=== PATIENT | female | born 1975 | race Caucasian/White ===

== ENCOUNTER 2016-09-12 17:19 | Emergency (ER) | payer BC ==
[~2016-09-12] VITALS: Ht 160 cm; Wt 120.8 kg
[~2016-09-12 17:19] MED LIST: BUDE180I INH; MONT1TAB3 PO; PRLSR20 PO; ZNTT/150 PO
[2016-09-12 17:22] VITALS: Ht 160 cm; Wt 120.8 kg
[2016-09-12 20:20] VITALS: O2SAT 98
[2016-09-12 20:56] LABS: HEMATOCRIT 42.5 % (37-47); MEAN CELL VOLUME 87.6 fL (80-100); MEAN CORPUSCULAR HEMOGLOBIN 28.7 pg (25-34); MEAN CORPUSCULAR HGB CONC 32.7 g/dl (32-36); MEAN PLATELET VOLUME 9.1 fL (7.4-10.4); PLATELET COUNT 306 K/uL (130-400); RED BLOOD COUNT 4.85 M/uL (4.2-5.4); WHITE BLOOD COUNT 14.24 K/uL (4.8-10.8)
[2016-09-12] MEDS ORDERED: ALUMINUM/MAGNESIUM SUSP 30 ML UDC PO STA (21:05)
[2016-09-12] MEDS ORDERED: LIDOCAINE HCL 2% VISC SOLN 20 ML UDC PO STA (21:05)
[2016-09-12 21:09] LABS: ALT/SGPT 23 U/L (12-78); BLOOD UREA NITROGEN 16 mg/dl (7-18); BUN/CREATININE RATIO 18.5 (10-20); CARBON DIOXIDE 25 mmol/L (21-32); CHLORIDE 106 mmol/L (98-107); CREATININE 0.84 mg/dl (0.60-1.20); GLUCOSE 79 mg/dl (70-99); SODIUM 141 mmol/L (136-145)
[2016-09-12] MEDS ORDERED: FLUT0.15 NAE (21:12)
--- NOTE | 2016-09-12 21:12 | EMERGENCY ROOM VISIT NOTE ---
History Report prepared by Dennys: Yulissa Boone Under the Supervision of: Dr. Karen Cooper M.D. First contact with patient: 20:47 Chief Complaint: CHEST PAIN Stated Complaint: CHEST PAIN History of Present Illness The patient is a 41 year old female who presents to the Emergency Room with complaints of persistent, but resolving central chest pain that began several hours ago. She currently rates her discomfort as a 3/10 in severity. The patient states that today she was at [employer] getting pillows and states that while loading her car, she developed central chest pain. She reports that she waited awhile to see if the pain subsided, but states that it persisted. The patient states that she noticed the pain radiate into her back, and additionally notes shortness of breath. She states that she thought her pain was related to anxiety, but it continued to persist and began to radiate into her neck. The patient states that she was evaluated at [facility] and states that after she had an EKG and was given 324 of aspirin, she was sent to the emergency department for further treatment. She states that her pain has slightly resolved. The patient states that she is a daily smoker at 1/2 pack per day. She denies any control use or hormonal usage. The patient denies any family history of heart disease. She reports that she is currently on prednisone due to a recent back injury. Source of History: patient Onset: several hours ago Position: chest (central) Symptom Intensity: 3/10 Timing: other (persistent, resolving) Associated Symptoms: + neck pain, + SOB, + back pain Review of Systems See HPI for pertinent positives & negatives. A total of 10 systems reviewed and were otherwise negative. Past Medical & Surgical Medical Problems: (1) Migraine (2) OBESITY, NOS (3) TOBACCO USE DISORDER (4) [place] Teeth Removal Family History FH: cancer Social History Smoking Status: Current Every Day Smoker Alcohol Use: occasionally Marital Status: Housing Status: lives with family Occupation Status: employed Current/Historical Medications Scheduled Pantoprazole (Protonix), 40 MG PO DIRECTED Prednisone (Prednisone), Unknown Dose PO UD Scheduled PRN Fexofenadine Hcl (Ashley), 1 TAB PO DAILY PRN for ALLERGIES Fluticasone Propionate (Nasal) (Flonase Allergy Relief), 1 SPRAY ANNIE DAILY PRN for ALLERGIES Allergies Coded Allergies: POLLEN (Verified Allergy, Unknown, UNKNOWN, 6/15/17) Ragweed (Verified Allergy, Unknown, UNKNOWN, 09/12/16) Physical Exam Vital Signs Date Time Temp Pulse Resp B/P (MAP) Pulse Ox O2 Delivery O2 Flow Rate FiO2 09/12/16 22:48 36.6 64 18 134/83 92 09/12/16 22:36 64 18 92 09/12/16 22:31 134/83 09/12/16 22:06 67 28 94 09/12/16 22:01 114/84 09/12/16 21:36 67 23 96 09/12/16 21:31 127/79 09/12/16 21:06 67 25 94 09/12/16 21:01 131/98 96 Room Air 09/12/16 20:56 Room Air 09/12/16 20:49 64 14 94 Room Air 09/12/16 20:36 62 09/12/16 20:31 130/80 09/12/16 20:20 98 Room Air 09/12/16 17:22 36.6 78 16 157/90 95 Room Air Physical Exam Vital signs reviewed. General: Well-appearing obese, female, in no significant distress. HEENT: No scleral icterus, PERRLA, neck supple. Atraumatic. Cardiovascular: Regular rate and rhythm, no extra sounds. Pulmonary: Clear to auscultation bilaterally, normal work of breathing. Abdomen: Soft, nontender, nondistended, positive bowel sounds. Musculoskeletal: Atraumatic, no peripheral edema. Neurologic: Patient awake alert and oriented x 3 Skin: Warm, dry, no rash Medical Decision & Procedures ER Provider Diagnostic Interpretation: X-ray results as stated below per interpretation by me and the radiologist: CHEST ONE VIEW PORTABLE CLINICAL HISTORY: Chest pain. COMPARISON STUDY: Chest CT December 14, 2015. FINDINGS: There is no pneumothorax or pleural effusion. There is no evidence of pulmonary edema. Cardiomediastinal silhouette is normal. No consolidation is identified. IMPRESSION: No acute cardiopulmonary findings. Electronically signed by: Mc Allen M.D. 09/12/2016 9:29 PM Dictated Date/Time: 09/12/2016 9:28 PM Laboratory Results 09/12/16 20:30 Red Blood Count 4.85, Mean Corpuscular Volume 87.6, Mean Corpuscular Hemoglobin 28.7, Mean Corpuscular Hemoglobin Concent 32.7, Mean Platelet Volume 9.1, Neutrophils (%) (Auto) 54.9, Lymphocytes (%) (Auto) 37.3, Monocytes (%) (Auto) 4.6, Eosinophils (%) (Auto) 2.7, Basophils (%) (Auto) 0.1, Neutrophils # (Auto) 7.82, Lymphocytes # (Auto) 5.31, Monocytes # (Auto) 0.65, Eosinophils # (Auto) 0.38, Basophils # (Auto) 0.02 09/12/16 20:30 Test 09/12/16 20:30 09/12/16 20:54 White Blood Count 14.24 K/uL (4.8-10.8) Red Blood Count 4.85 M/uL (4.2-5.4) Hemoglobin 13.9 g/dL (12.0-16.0) Hematocrit 42.5 % (37-47) Mean Corpuscular Volume 87.6 fL (80-100) Mean Corpuscular Hemoglobin 28.7 pg (25-34) Mean Corpuscular Hemoglobin Concent 32.7 g/dl (32-36) Platelet Count 306 K/uL (130-400) Mean Platelet Volume 9.1 fL (7.4-10.4) Neutrophils (%) (Auto) 54.9 % Lymphocytes (%) (Auto) 37.3 % Monocytes (%) (Auto) 4.6 % Eosinophils (%) (Auto) 2.7 % Basophils (%) (Auto) 0.1 % Neutrophils # (Auto) 7.82 K/uL (1.4-6.5) Lymphocytes # (Auto) 5.31 K/uL (1.2-3.4) Monocytes # (Auto) 0.65 K/uL (0.11-0.59) Eosinophils # (Auto) 0.38 K/uL (0-0.5) Basophils # (Auto) 0.02 K/uL (0-0.2) RDW Standard Deviation 45.7 fL (36.4-46.3) RDW Coefficient of Variation 14.2 % (11.5-14.5) Immature Granulocyte % (Auto) 0.4 % Immature Granulocyte # (Auto) 0.06 K/uL (0.00-0.02) Anion Gap 10.0 mmol/L (3-11) Est Creatinine Clear Calc Drug Dose 108.7 ml/min Estimated GFR () 98.7 Estimated GFR (Non- 85.1 BUN/Creatinine Ratio 18.5 (10-20) Calcium Level 8.4 mg/dl (8.5-10.1) Total Bilirubin 0.2 mg/dl (0.2-1) Direct Bilirubin < 0.1 mg/dl (0-0.2) Aspartate Amino Transf (AST/SGOT) 10 U/L (15-37) Alanine Aminotransferase (ALT/SGPT) 23 U/L (12-78) Alkaline Phosphatase 62 U/L (45-117) Total Creatine Kinase 35 U/L (26-192) Creatine Kinase MB < 0.5 ng/ml (0.5-3.6) Creatine Kinase MB Ratio (0-3.0) Total Protein 7.2 gm/dl (6.4-8.2) Albumin 3.4 gm/dl (3.4-5.0) Bedside Troponin I < 0.030 ng/ml (0-0.045) Laboratory results per my review. Medications Administered Medications (Trade) Dose Ordered Sig/Patricia Route Start Time Stop Time Status Last Admin Dose Admin Lidocaine HCl (Viscous Lidocaine 2% Soln) 10 ml NOW STAT PO 09/12/16 21:05 09/12/16 21:06 DC 09/12/16 21:13 10 ML Al Hydroxide/Mg Hydroxide (Maalox Susp) 30 ml NOW STAT PO 09/12/16 21:05 09/12/16 21:06 DC 09/12/16 21:13 30 ML Pantoprazole Sodium (Protonix Tab) 40 mg NOW STAT PO 09/12/16 22:06 09/12/16 22:07 DC 09/12/16 22:18 40 MG ECG Rate (beats per minute): 66 Rhythm: normal sinus Findings: T-wave inversion (V1 and V2), no acute ischemic change, no ectopy ED Course 2100: Past medical records reviewed. The patient was evaluated in room A10. A complete history and physical examination was performed. 2104: Ordered Maalox Susp 30 ml PO, Lidocaine HCl 10 ml PO, Protonix Tab 40 mg PO. 2238: I reevaluated the patient and she is resting comfortably. I discussed the exam findings with her and I discussed the treatment plan. She verbalized complete understanding and agreement. She is ready to go home. Medical Decision DDx: Acute coronary syndrome, pulmonary embolus, aortic dissection, musculoskeletal pain, pneumonia, pleural effusion, pneumothorax Medication Reconciliation: I attest that I have personally reviewed the patient' s current medication list. Blood Pressure Screening: Patient was found to have normal blood pressure on screening and does not require follow-up. This patient was evaluated and appeared to be in no significant distress. IV access was obtained and laboratory work was drawn. The patient was placed on cardiac rn and found to be in a normal sinus rhythm. EKG reveals no evidence of acute ischemia. The patient was given a GI cocktail with some improvement. Patient had received aspirin prior to arrival. Cardiac enzymes are negative 2. Patient's chest x-ray is clear. The patient was advised of the findings. I suspect that her symptoms are related to her current prednisone therapy. This is also likely the explanation for her leukocytosis. Patient was advised to stop the prednisone. She was placed on Protonix 40 mg twice a day for 2 weeks, then once daily for 2 weeks. She will follow-up with her primary care physician for reevaluation this week and return to the ER for worsening of symptoms or any medical concerns. Impression Primary Impression: Substernal precordial chest pain Additional Impression: Gastritis Scribe Attestation The scribe's documentation has been prepared under my direction and personally reviewed by me in its entirety. I confirm that the note above accurately reflects all work, treatment, procedures, and medical decision making performed by me. Departure Information Dispostion Home / Self-Care Prescriptions Pantoprazole (Protonix) 40 Mg Tab 40 MG PO DIRECTED, #45 TAB 40 mg twice daily for 2 weeks, 40 mg once daily for 2 weeks. Prov: Karen Cooper M.D. 09/12/16 Referrals Chance Mcdaniel D.ORegla (PCP) Forms HOME CARE DOCUMENTATION FORM, IMPORTANT VISIT INFORMATION Patient Instructions My [facility] Additional Instructions Diagnosis: Gastritis Protonix 40 mg twice daily for 2 weeks. Then 1 time a day for 2 weeks. Avoid aspirin, Aleve, ibuprofen. Avoid excessive alcohol. Stop taking prednisone. Follow-up with your physician this week for reevaluation. Return to the ER for worsening of symptoms or any medical concerns. Problem Qualifiers
[2016-09-12 21:14] LABS: ALKALINE PHOSPHATASE 62 U/L (45-117); AST/SGOT 10 U/L (15-37)
[2016-09-12] MEDS ORDERED: FEXO1TAB45 PO (21:14)
[2016-09-12] MEDS ORDERED: PRD/1 PO (21:17)
[2016-09-12 21:24] LABS: BASO % 0.1 %; BASO ABS # 0.02 K/uL (0-0.2); COMPLETE YES; EOS % 2.7 %; IG% 0.4 %; LYMPH % 37.3 %; LYMPH ABS # 5.31 K/uL (1.2-3.4); MONO % 4.6 %; NEUT % 54.9 %
--- NOTE | 2016-09-12 21:30 | DIAGNOSTIC IMAGING REPORT ---
CHEST ONE VIEW PORTABLE CLINICAL HISTORY: Chest pain. COMPARISON STUDY: Chest CT December 14, 2015. FINDINGS: There is no pneumothorax or pleural effusion. There is no evidence of pulmonary edema. Cardiomediastinal silhouette is normal. No consolidation is identified. IMPRESSION: No acute cardiopulmonary findings. Electronically signed by: Mc Allen M.D. 09/12/2016 9:29 PM Dictated Date/Time: 09/12/2016 9:28 PM
[2016-09-12 21:59] LABS: CALCIUM 8.4 mg/dl (8.5-10.1)
[2016-09-12] MEDS ORDERED: PANTOprazole SOD 40 MG TAB PO STA (22:06)
[2016-09-12 22:48] VITALS: BP 134/83; PULSE 64; TEMP 36.6; O2SAT 92
[2016-09-12] MEDS ORDERED: PANT40TA PO (22:49)
== END 2016-09-12 22:48 | disposition home or self-care (01) ==
LOC: C.EDB 17:19 → C.EDA 22:48
DX: R07.2 Precordial pain (principal); K29.70 Gastritis, unspecified, without bleeding; E66.9 Obesity, unspecified; F17.200 Nicotine dependence, unspecified, uncomplicated

== ENCOUNTER → 2016-10-09 | Outpatient (CLI) | payer BC ==
[~2016-10-09] MED LIST changes: -BUDE180I INH; +FEXO1TAB45 PO; +FLUT0.15 NAE; -MONT1TAB3 PO; +PANT40TA PO; +PRD/1 PO; -PRLSR20 PO; -ZNTT/150 PO
--- NOTE | 2016-10-09 15:37 | MAMMOGRAPHY REPORT ---
BILATERAL DIGITAL SCREENING MAMMOGRAM TOMOSYNTHESIS WITH CAD: 10/09/2016 CLINICAL HISTORY: Routine screening. TECHNIQUE: Breast tomosynthesis in addition to standard 2D mammography was performed. Current study was also evaluated with a Computer Aided Detection (CAD) system. COMPARISON: Comparison is made to exams dated: 10/05/2015 mammogram, 08/17/2014 mammogram, 06/02/2013 tim mogram, 07/12/2009 mammogram, 02/27/2010 mammogram, and 06/10/2013 mammogram - [facility] nter. BREAST COMPOSITION: There are scattered areas of fibroglandular density in both breasts. FINDINGS: No suspicious masses, calcifications, or areas of architectural distortion are noted in ei ther breast. There has been no significant interval change compared to prior exams. IMPRESSION: ACR BI-RADS CATEGORY 1: NEGATIVE There is no mammographic evidence of malignancy. A 1 year screening mammogram is recommended. The pa tient will receive written notification of the results. Approximately 10% of breast cancers are not detected with mammography. A negative mammographic report should not delay biopsy if a clinically suggestive mass is present. Kathy Duff M.D. ah/:10/09/2016 08:22:23 Rn Er: Hardeep WARREN(Ju)(M), [facility] letter sent: Normal 1/2 BI-RADS Code: ACR BI-RADS Category 1: Negative
== END | disposition home or self-care (01) ==
LOC: C.MAMM 07:56
PROVIDERS: ATTEND Family Medicine
DX: Z12.31 Encounter for screening mammogram for malignant neoplasm of breast (principal)

== ENCOUNTER → 2017-10-27 | Outpatient (CLI) | payer OTHER ==
[~2017-10-27] MED LIST changes: -PANT40TA PO
--- NOTE | 2017-10-27 15:43 | MAMMOGRAPHY REPORT ---
UNILATERAL RIGHT DIGITAL DIAGNOSTIC MAMMOGRAM TOMOSYNTHESIS AND RIGHT ULTRASOUND: 10/27/2017 CLINICAL HISTORY: 42-year-old woman called back from screening mammography for 2 right breast asymmet david. TECHNIQUE: Spot compression right CC and MLO 2D and tomosynthesis images were obtained. COMPARISON: Comparison is made to exams dated: 10/14/2017 mammogram, 10/09/2016 mammogram, 08/17/2014 m ammogram, 06/10/2013 mammogram, 06/02/2013 mammogram, and 02/27/2010 mammogram - [facility] enter. Ultrasound of the right breast was performed. BREAST COMPOSITION: There are scattered areas of fibroglandular density in right breast. FINDINGS: Spot compression views performed in the lateral right breast demonstrate a persistent trian gular mass with angular and indistinct margins in the upper outer middle one third of the breast at a pproximately 9:00, measuring 13 x 9 x 8 mm. No associated architectural distortion or calcification. Further evaluation with ultrasound was performed. Targeted ultrasound was performed throughout the lateral right breast. In the 8:00 axis, 8 cm from t he nipple, there is a mixed anechoic and isoechoic predominantly cystic-appearing mass that has the a ppearance of a microcyst cluster. This mass measures 14 x 8 x 5 mm and corresponds with asymmetry se en in the lateral right breast. Although this mass is probably benign representing a cyst cluster, a papillary lesion cannot be completely excluded and further characterization with an ultrasound-guide d core needle biopsy is recommended. At the time of this ultrasound evaluation, the medial breast was not scanned and therefore ultrasound of the medial right breast for the second mammographic asymmetry should be performed at time of biop sy in the 8:00 axis. IMPRESSION: ACR BI-RADS CATEGORY 4: SUSPICIOUS, ULTRASOUND ACR BI-RADS CATEGORY 4: SUSPICIOUS 1. Right breast ultrasound-guided core biopsy is recommended for an indeterminate 14 mm mass in the 8:00 axis, which corresponds with 1 of the mammographic asymmetries identified in the lateral breast. 2. At the time of ultrasound biopsy, ultrasound evaluation should also be performed throughout the m edial right breast, to assess for the second more medial asymmetry best seen on CC tomosynthesis slic e 41/75. These results and recommendations were discussed with the patient at the time of the exam. She tenta tively scheduled the right breast biopsy prior to leaving our department. Some breast cancers are not detected with mammography. A negative mammographic report should not tameka y biopsy if a clinically suggestive mass is present. Carmina Nolan M.D. ay/:10/27/2017 12:23:15 Sliver Machine Operator: RT Anne Marie(R)(Reema), [facility] letter sent: Abnormal 4/5 OVERALL STUDY BIRADS: 4 Suspicious abnormality
== END | disposition home or self-care (01) ==
LOC: C.MAMM 11:22
PROVIDERS: ATTEND Family Medicine
DX: N64.89 Other specified disorders of breast (principal); N63.13 Unspecified lump in the right breast, lower outer quadrant

== ENCOUNTER → 2017-11-04 | Outpatient (CLI) | payer OTHER ==
--- NOTE | 2017-11-04 14:12 | Discharge Instructions ---
Discharge Instructions Procedure Procedure Date: Nov 04, 2017. Reason for visit: Right Mass+Us Medial. Discharge Discharge Date: Nov 04, 2017. Discharge Diagnosis: post right breast ultrasound guided core biopsy Instructions Activity Recommendations: Additional Limitations (see below) Return to School/Work: no limitations Recommended Home Diet: No Limitations Provider Instructions: ACTIVITY RECOMMENDATIONS: * No lifting, pushing, pulling or exercising the affected side for three days. RETURN TO SCHOOL/WORK: * You may return to work/school after the procedure, but do not perform any strenuous activities for 24 to 48 hours. MEDICATIONS: * Tylenol (two 325 mg) every four to six hours if needed for mild pain (if not allergic to Tylenol). DIET: * Resume previous diet. SPECIAL CARE INSTRUCTIONS: * Keep biopsy site dry for 24 hours. May shower after 24 hours, but do not soak (bathe) incision. May remove Tegaderm (plastic patch) 24 hours after procedure * Leave the steri-strips on for one week. Allow the steri-strips to fall off by themselves. If not off after one week, you may remove them. You may place a Bandaid crosswise over the strips, if desired. * Apply ice 10 minutes on and 10 minutes off as needed. * Wear a bra at bedtime to sleep more comfortably for 2-3 days. * Your referring physician should have the results after approximately 5 to 7 business days. * Call for unusual bleeding, fever, drainage, etc or if you have any questions call [phone] during normal business hours or after hours call Dr Nolan, . FOLLOW UP VISIT: Follow-up with Referring Physician as scheduled. Allergies Coded Allergies: POLLEN (Verified Allergy, Unknown, UNKNOWN, 09/12/16) Ragweed (Verified Allergy, Unknown, UNKNOWN, 09/12/16) Shreya Ludwig Recommendations: Call your doctor if: * Temperature above 101 degrees * Pain not relieved by pain medicine ordered * There is increased drainage or redness from any incision * You have any unanswered questions or concerns. Your Doctors Instructions noted above were prepared by provider Carmina Nolan. Patient Signature Section: Patient Instructions Signature Page Alisha Neely Patient (or Guardian) Signature/Date: I have read and understand the instructions given to me by my caregivers. Caregiver/RN/Doctor Signature/Date: The above-named patient and/or guardian has received patient instructions on this date. + Original Patient Signature Page (only) stays with chart. Please make copy for patient.
--- NOTE | 2017-11-04 14:45 | MAMMOGRAPHY REPORT ---
UNILATERAL RIGHT DIGITAL DIAGNOSTIC MAMMOGRAM TOMOSYNTHESIS: 11/04/2017 CLINICAL HISTORY: Post ultrasound-guided core biopsy of a mixed solid and cystic mass in the 8:00 rig ht breast, 8 cm from the nipple, measuring 14 mm. Please refer the report from right breast ultrasound-guided core biopsy performed at the same time fo r full detail. IMPRESSION: POST PROCEDURE IMAGING FOR MARKER PLACEMENT Please refer the report from right breast ultrasound-guided core biopsy performed at the same time fo r full detail. Some breast cancers are not detected with mammography. A negative mammographic report should not tameka y biopsy if a clinically suggestive mass is present. Carmina Nolan M.D. ay/:11/04/2017 14:13:47 Mailroom Courier: Marcia Chauhan, [facility] BI-RADS Code: Post Procedure Imaging For Marker Placement
--- NOTE | 2017-11-05 13:37 | MAMMOGRAPHY REPORT ---
THIS REPORT HAS BEEN AMENDED. ULTRASOUND GUIDED BIOPSY RIGHT BREAST: 11/04/2017 CLINICAL HISTORY: Patient presents for ultrasound-guided biopsy of an indeterminate 14 mm angular mix ed solid and cystic mass in the 8:00 right breast, thought to correlate with a focal mammographic asy mmetry in the lateral right breast. Also ultrasound a right medial asymmetry, which was not performed during prior diagnostic workup. PATIENT CONSENT: The procedure, risks and benefits were discussed with the patient and informed conse nt was obtained both verbally and in writing. Specific risks to this procedure include: bleeding, in fection, puncture of adjacent structure, nontarget biopsy, sampling error, pain, metal allergy and me dication reaction. FINDINGS: Prior to ultrasound biopsy of the right breast, real-time high resolution sonographic evalu ation was performed throughout the medial breast. In the 4:00 right breast, 1 cm from the nipple, a benign anechoic simple cyst, oval and parallel in orientation is again seen measuring 7.6 x 3.5 x 11. 5 mm. No other discrete solid or cystic mass is noted in the medial right breast on targeted ultraso und. The patient also reported a single episode of blackish nipple discharge from the right breast f or which periareolar and retroareolar ultrasound was also performed. Several enlarged ducts with int ernal isoechoic/hypoechoic debris are seen in the retroareolar right breast which could explain a sin gle episode of blackish nipple discharge, which could represent ductal debris, given that numerous du cts appear similar. However, pending benign pathology results from the right 8:00 breast biopsy magdalena marroquin recommend a follow-up targeted ultrasound in the retroareolar right breast to ensure stability. PROCEDURE DESCRIPTION: A time out was performed and the right breast was agreed as the site of biopsy . The skin was prepped and draped in the usual sterile fashion. The triangular 14 mm mixed solid and cystic mass in the 8:00 right breast was chosen as the target for biopsy. Subcutaneous and intraparen chymal 1% buffered lidocaine, with and without epinephrine, was administered as local anesthesia. A s kin incision was made. Through the incision, 3 samples were taken with a 14 gauge Achieve biopsy dev ice. A ribbon shaped metallic marker was placed at the biopsy site. Hemostasis was achieved after man ual compression. The patient tolerated the procedure well and there was no immediate complication. T he samples were sent to the pathology department in an appropriately labeled container. Postprocedure right CC and MLO tomosynthesis images were obtained. A new ribbon-shaped biopsy marker clip is identified in the 8:00 right breast, aligning with the mammographic focal asymmetry in quest ion. No significant postbiopsy hematoma identified. The right medial asymmetry seen in the middle o ne third of the breast on the CC view is again noted, low in density with partially circumscribed bor ders measuring 8.5 x 4.1 mm. IMPRESSION: ULTRASOUND GUIDED BIOPSY 1. Status post ultrasound-guided core biopsy of the right 8:00 breast mass, with biopsy marker clip placed at the site. The biopsy marker clip aligns with the mammographic focal asymmetry in question, confirming mammographicsonographic correlation. 2. Pending benign pathology results, a short interval follow-up right diagnostic tomosynthesis mammo gram and possible ultrasound is recommended to ensure stability of a right medial asymmetry seen on t he CC view. 3. At the time of next follow-up, targeted ultrasound should also be performed in the periareolar an d retroareolar right breast to ensure stability of ectatic debris-filled ducts in the setting of one episode of blackish nipple discharge. The patient will receive notification of the biopsy results from her referring physician. Carmina Nolan M.D. ay/:11/04/2017 14:51:22 Wildlife Rehabilitator: Marcia Chauhan, [facility] AMENDMENT: 11/05/2017 Carmina Nolan M.D. Pathology results from the ultrasound-guided core biopsy of an angular mixed solid and cystic mass in the 8:00 right breast yielded fibrocystic change. Negative for DCIS and invasive carcinoma. The pa thology results are benign and concordant with the imaging appearance. A six-month follow-up right d iagnostic mammogram and possible ultrasound still recommended for the more medial asymmetry in the mi ddle one third of the right breast on the cc view, for which no sonographic correlate was identified.
== END | disposition home or self-care (01) ==
LOC: C.MAMM 13:31
PROVIDERS: ATTEND Family Medicine
DX: N63.13 Unspecified lump in the right breast, lower outer quadrant (principal)

== ENCOUNTER 2017-11-24 17:55 | Emergency (ER) | payer OTHER ==
[~2017-11-24] VITALS: Ht 160 cm; Wt 125.6 kg
[2017-11-24 18:00] VITALS: TEMP 36.9; Ht 160 cm; Wt 125.6 kg
[2017-11-24] MEDS ORDERED: PROPARACAINE HCL 0.5% OP SOLN 15 ML BTL OP STA (18:19)
--- NOTE | 2017-11-24 18:23 | EMERGENCY ROOM VISIT NOTE ---
History Report prepared by Shaneibe: Latisha Isidro Under the Supervision of: Dr. Jereime Huff M.D. First contact with patient: 18:11 Chief Complaint: EYE ASSESSMENT Stated Complaint: BLOOD SHOT RIGHT EYE,HEADACHE History of Present Illness The patient is a 42 year old female who presents to the Emergency Room with complaints of constant, worsening, R eye redness beginning 8 days ago. She notes she woke up 8 days ago and noticed a red spot in her eye, about the size of a grain of rice. She denies any trauma or alcohol consumption the day before the redness began. The patient reports she saw her youth manager 5 days ago, who believed the redness may be due to a popped blood vessel and told the patient it should begin to improve. She notes the redness has been worsening daily, becoming significantly worse over the past 2 days, and today she noticed a black bump in the eye. The patient notes a mild itchiness of the eye. She denies any any vision problems, fevers, chills, cough, congestion, nausea, vomiting, or diarrhea. The patient reports she has had a sore throat and "full ears" for the past 5 days, which she believes may be due to allergies. She denies a history of HTN and states she does not take blood thinners. Source of History: patient Onset: 8 days ago Position: eye (right) Quality: other (redness) Timing: constant, worsening Associated Symptoms: No fevers, No chills, No cough, No nausea, No vomiting , No diarrhea Note: Associated symptom: mild itchiness of R eye, "full ears." Denies: vision problems. Review of Systems See HPI for pertinent positives and negatives. A total of ten systems were reviewed and were otherwise negative. Past Medical & Surgical Medical Problems: (1) Migraine (2) OBESITY, NOS (3) TOBACCO USE DISORDER (4) [place] Teeth Removal Family History FH: cancer Social History Smoking Status: Current Every Day Smoker Alcohol Use: occasionally Marital Status: Housing Status: lives with family Occupation Status: employed Current/Historical Medications No Active Prescriptions or Reported Meds Allergies Coded Allergies: POLLEN (Verified Allergy, Unknown, UNKNOWN, 09/12/16) Ragweed (Verified Allergy, Unknown, UNKNOWN, 09/12/16) Physical Exam Vital Signs Date Time Temp Pulse Resp B/P (MAP) Pulse Ox O2 Delivery O2 Flow Rate FiO2 8/27/18 19:39 62 16 147/83 94 11/24/17 18:00 36.9 80 17 153/91 97 Room Air Physical Exam GENERAL: Awake, alert, well-appearing, in no distress HENT: Normocephalic, atraumatic. Oropharynx unremarkable. EYES: Normal conjunctiva. Sclera non-icteric. Sub-conjunctival hemorrhage to temporal aspect of R eye, anterior chamber grossly cleared. NECK: Supple. No nuchal rigidity. FROM. No JVD. RESPIRATORY: Clear to auscultation. CARDIAC: Regular rate, normal rhythm. Extremities warm and well perfused. Pulses equal. ABDOMEN: Soft, non-distended. No tenderness to palpation. No rebound or guarding. No masses. RECTAL: Deferred. MUSCULOSKELETAL: Chest examination reveals no tenderness. The back is symmetrical on inspection without obvious abnormality. There is no CVA tenderness to palpation. No joint edema. LOWER EXTREMITIES: Calves are equal size bilaterally and non-tender. No edema. No discoloration. NEURO: Normal sensorium. No sensory or motor deficits noted. SKIN: No rash or jaundice noted. Medical Decision & Procedures Procedure Slit Lamp Examination Indication: subconjunctival hemorrhage of right eye The right eye was prepped with topical proparacaine. Slit lamp examination was performed in the standard fashion. Cornea appeared clear. Anterior chamber clear. Right temporal subconjunctival hemorrhage noted, otherwise no scleral injection present. No discharge present. Fluorescein examination performed and revealed no abnormalities. No foreign bodies noted. Negative Trevor sign. The patient tolerated the procedure well without complication. ED Course 1813: The patient was evaluated in room B4. A complete history and physical exam was performed. 1910: I performed a slit lamp exam procedure. See procedure note for details. I reevaluated the patient. Discussed results and discharge instructions: she verbalized understanding and agreement. The patient is ready for discharge. Medical Decision I reviewed the patient's past medical history, medications, and the nursing notes as described above. Differential diagnosis: Etiologies such as subconjunctival hemorrhage, ocular trauma, infection, as well as others were entertained. The patient is a 42 y/o woman who presents to the emergency department with complaint of a redness in her right eye c/w subconjunctival hemorrhage per HPI. On arrival the patient is well-appearing in NAD. On exam the patient has subconjunctival hemorrhage of the temporal aspect of her right eye that is limited to scleral. Anterior chamber clear. No FB beneath lids. Slit lamp exam unremarkable without corneal abrasion. IOPs 11 OD and 11.5 OS. Unclear etiology at this time. However, while the patient denies cough/sneezing/headaches, she does report that her seasonal allergies have been acting up and thus it is possible that she had been rubbing her eyes while sleeping. Patient reassuring regarding natural course of subconjunctival hemorrhage. Plan to f/u with ophtho. Findings and plan for follow-up reviewed with patient. Patient agreeable and d/c'd per discharge instructions. Medication Reconcilliation Current Medication List: was personally reviewed by me Blood Pressure Screening Patient's blood pressure: Elevated blood pressure Blood pressure disposition: Elevated BP felt to be situational Impression Primary Impression: Subconjunctival hemorrhage of right eye Scribe Attestation The scribe's documentation has been prepared under my direction and personally reviewed by me in its entirety. I confirm that the note above accurately reflects all work, treatment, procedures, and medical decision making performed by me. Departure Information Dispostion Home / Self-Care Prescriptions No Active Prescriptions or Reported Meds Referrals Chance Mcdaniel, Emily (PCP) Seth Frederick M.D. Forms HOME CARE DOCUMENTATION FORM, IMPORTANT VISIT INFORMATION, WORK / SCHOOL INSTRUCTIONS Patient Instructions My [facility], Subconjunctival Hemorrhage Additional Instructions Please follow up with ophthalmology, Dr. Frederick, or your youth manager in the next 1-3 days for re-evaluation. You were seen for a subconjunctival hemorrhage, which will most likely resolve on its own over the course of weeks. Otherwise, your exam did not show signs of an emergent condition at this time. Return to the emergency department for worsening symptoms as described in the accompanying instructions.
[2017-11-24 19:39] VITALS: BP 147/83; PULSE 62; O2SAT 94
== END 2017-11-24 19:39 | disposition home or self-care (01) ==
LOC: C.EDB 17:57
DX: H11.31 Conjunctival hemorrhage, right eye (principal); F17.200 Nicotine dependence, unspecified, uncomplicated; Z91.048 Other nonmedicinal substance allergy status

== ENCOUNTER 2023-12-14 22:48 | Observation (INO) ==
--- OUTSIDE RECORDS SUMMARY | 2023-12-14 23:06 | External Medical Summary | Summary of Care ---
Author Name Unknown Organization [facility] Address [address] [place] [address] Phone [phone] Care Team Providers Care Mill Operator Head Name Role Phone Melva Noriega MD Primary Care Provid er Reason for Visit * Reason Onset Date Comments Medication Problem 12/12/2023 Slow HR Encounter Details Date Type Department Care Team (Late st Contact Info) Description 12/12/2023 Telephone [facility] [address] [place] [address] Melva Noriega MD [address] [place] [address] Medication Problem (Slow HR ) Allergies Active Allergy Reactions Criticality Noted Date Comments Pollen Other (Please comment) 09/23/2015 Congestion Ragweed Other (Please comment) 09/23/2015 Congestion documented as of this encounter (statuses as of 12/12/2023) Medications Medication Sig Dispensed Refills Start Date End Date Status Levocetirizine Dihydrochloride 5 MG Oral Tablet Take 1 Tablet by mouth every evening. Active Fluticasone Propionate 50 MCG/ACT Nasal Suspension Administer 1 [place] into nostril in the morning. Active Multivitamin Adult Oral Tablet Take by mouth. Active LORazepam 1 MG Oral Tablet (Ativan)Indications: Grief at loss of child Take 1 Tablet by mouth every 8 hours as needed for Anxiety or Agitation. 30 Tablet 11/14/2023 Active Amoxicillin 875 MG Oral TabletIndications:Gr oup B streptococcal infection,Tonsil stone Take 1 Tablet by mouth in the morning and 1 Tablet before bedtime. 20 Tablet 12/04/2023 Active busPIRone HCl 5 MG Oral Tablet (Buspar)Indications: Panic disorder Take 1 Tablet by mouth in the morning and 1 Tablet at noon and 1 Tablet before bedtime. 90 Tablet 1 12/12/2023 Active Escitalopram Oxalate 10 MG Oral Tablet (Lexapro)Indications :Grief at loss of child,Anxiety Take 1 Tablet by mouth at bedtime. 7 Tablet 12/04/2023 4 Discontinue d(Adverse reaction) Escitalopram Oxalate 20 MG Oral Tablet (Lexapro) Take 1 Tablet by mouth at bedtime. 30 Tablet 5 12/04/2023 4 Discontinue d(Adverse reaction) documented as of this encounter (statuses as of 12/12/2023) Active Problems Problem Noted Date Diagnosed Date Murmur 06/19/2023 Prediabetes 06/10/2022 Overview: Per Prediabetes protocol Obesity, morbid (more than 1 00 lbs over ideal weight or BMI > 40) 11/26/2017 ADVANCE DIRECTIVE INFORMATION 03/29/2005 Overview: No, Advance Directive brochure given to patient at prior appointment. TOBACCO USE DISORDER, smoker 06/02/2001 Panic disorder 05/22/2001 Chronic tonsillitis Hypertrophy of tonsils and adenoids Allergic rhinitis Reflux esophagitis documented as of this encounter (statuses as of 12/12/2023) Resolved Problems Problem Noted Date Diagnosed Date Resolved Date BMI 35-39 ISOLATED (SEE ACTUAL BMI) 09/11/2009 11/26/2017 Overview: Per Obesity Protocol, #19 NONE 06/07/2003 02/15/2005 NONE 06/07/2003 02/15/2005 Encounter for supervision of other normal 12/09/2001 02/15/2005 Overview: ICD-10 update of inactive term documented as of this encounter (statuses as of 12/12/2023) Immunizations Name Administration Dates Next Due COVID-19, mRNA, LNP-s, PF, B ooster, 100mcg/0.5mg (Moderna) 03/17/2021 Covid-19 Ad26, Single Dose (Bharati/J&J) 07/06/2020 Seasonal Influenza Virus Vac cine, Unspecified Formulation 01/12/2021 Seasonal Influenza, Quadriva lent, No Preserve, IM 12/24/2021,01/12/2020,12/30/2018,2014 Seasonal Influenza, Quadriva lent,with Preserve, 3 yr & above, IM 01/03/2017 Seasonal Influenza, Trivalen t, (IIV3), with Preserv, (Fluzone) 12/18/2012,01/13/2012,01/12/2011,2008 TD, Preservative Free 11/26/2017 TDAP, Age 7 and older, IM (Adacel) 08/13/2007 documented as of this encounter Social History Tobacco Use Types Packs/Day Years Used Date Smoking Tobacco: Every Day Cigarettes 0.8 20 Smokeless Tobacco: Never Comments:3 packs/week Alcohol Use Standard Drinks/Week Comments Yes 0 (1 standard drink = 0.6 oz pur e alcohol) occasionl- 1/2 per year PHQ-2 Answer Date Recorded PHQ Adult Total Score 0 07/14/2023 Hunger Vital Sign Answer Date Recorded Worried About Running Out of Food in the Last Ye ar Never true 02/02/2020 Ran Out of Food in the Last Year Never true 02/02/2020 Utilities Answer Date Recorded Do you have trouble paying y our heating, water, or electric bill? (Adult - for ages 18 years and over) Not on file 09/16/2023 Is your family able to pay t he heat, water, or electric bill? (Household - for ages 0-17 years) Not on file 09/16/2023 Does your family have access to good internet? (Household - for ages 0-17 years) Not on file 09/16/2023 Social Connections Answer Date Recorded How often do you feel lonely or isolated from those around you? (Adult - for ages 18 years and over) Not on file 09/16/2023 Sex and Gender Information Value Date Recorded Sex Assigned at Female 02/02/2020 8:18 AM EST Gender Identity Female 02/02/2020 8:18 AM EST Sexual Orientation Straight 02/02/2020 8: 18 AM EST Job Start Date Occupation Industry Not on file Not on file Not on file documented as of this encounter Miscellaneous Notes * Telephone Encounter - Melva Noriega MD - 12/12/2023 2:12 PM EDT Psych meds in past tried Lorazepam, xanax Wellbutrin 2005 x 1 Buspar 2004 x 2 refills Lexapro 2023 (palpitations?) Paroxetine 2007 x 1 Zoloft 2002 and 2008 x 1 each Trazodone 2013 and 2013 Saw Nacny Went to ER this past Friday Says her HR is really low, in 40s when she's sitting here in office. Has a fitbit. Says she feels "jittery" or "weak" or "shaky". Makes her feel very strange. DC lexapro Start buspar - up titration reviewed Keep us posted on progress AG * Telephone Encounter - Perla Espinoza MED ASSIST - 12/12/2023 2:01 PM EDT Please advise * Telephone Encounter - Malgorzata Kwong OSA - 12/12/2023 10:37 AM EDT Lexapro is making pt's HR low. She is getting like 45 beats per Minute. She is feeling jittery and shaky. She is asking to be advised. She is holding off taking this until she is advised. Please call her back [id number]. Pt saw Nancy Burleson documented in this encounter Plan of Treatment Upcoming Encounters Date Type Department Care Team (Late st Contact Info) Description 12/24/2023 7:30 AM EDT Imaging Radiology [address], [address] [place] [address] 06/02/2024 7:15 AM EST Imaging Radiology [place] [address] [facility] [place] [address] Scheduled Procedures Name Priority Associated Diagnoses Date/Ti me COLONOSCOPY FLEXIBLE PROXIMAL DIAGNOSTIC Recall History of colon polyps Health Maintenance Due Date Last Done Comments Pneumococcal Vaccine: Pediatrics (0 to 5 Years) and At-Risk Patients (6 to 64 Years) (1 of 2 - PCV) 06/02/1979 Hepatitis B Vaccine (1 of 3 - 19+ 3-dose series) 1992 Cologuard 2018 Fecal Occult Blood Test 2018 Sigmoidoscopy 2018 Zoster Vaccines (1 of 2) 06/02/2023 HbA1c 10/16/2023 10/15/2022, 05/01, 02/10/2020 Mammogram 11/28/2023 11/27/2022, 10/30, 11/22/2020, Additional history exists COVID-19 Vaccine ( - 2023- season) 2023 03/17/2021, 07/06/2020 Influenza Vaccine (FLU shot) (#1) 2023 12/24/2021, 01/12/2021, 01/12/2020, Additional history exists Depression Screening 07/13/2024 07/14/2023 Colonoscopy 04/03/2025 04/03/2020, 04/03/2020 Colorectal Cancer Screening 04/03/2025 Pap Smear 05/17/2025 05/17/2022, 08/2015, 02/03/2012 (Done elsewhere), Additional history exists Cervical Cancer Screening 05/17/2027 HPV/Co-Test 05/17/2027 05/17/2022 Lipid Panel 05/17/2027 05/17/2022, 02/28, 04/01/2015, Additional history exists DTap/Tdap Vaccines (3 - Td or Tdap) 11/27/2027 11/26/2017, 08/13/2007 RETIRED - COLONOSCOPY-EVERY 5 YRS AGES 18-100 Discontinued 04/03/2020, 04/03/2020 Hepatitis C Screening Completed 03/28/2021 HPV (Gardasil) Vaccine Aged Out No lo nger eligible based on patient's age to complete this topic MENINGOCOCCAL (MENACTRA/MENVEO) Aged Out No longer eligible based on patient's age to complete this topic documented as of this encounter Medical Devices Not on filedocumented as of this encounter Visit Diagnoses Diagnosis Panic disorder- Primary Panic disorder without agoraphobia documented in this encounter Care Teams Mill Operator Head Relationship Specialty Start Date End Date Melva Noriega MD [address] [place] [address] PCP - General Family Medicine 10/10/23 documented as of this encounter
--- OUTSIDE RECORDS SUMMARY | 2023-12-14 23:06 | External Medical Summary ---
Author Name Unknown Address Unknown Organization [id number]:[facility] [place] - [address] [place] [address] Laboratory Report Ordering Provider Test Date Status CRISTO,MINGECHIVO 12/12/2023 11:32:28 Final Observation Date Value Abnormality Reference (Units ) Status HbA1C 12/12/2023 11:32:28 5.7 Above high normal 4. 0-5.6 (%) Final The use of HbA1c to monitor glycemic status is based on normal hemoglobin and HbA composition. This test should not be used in patients with abnormal hemoglobin that affects the half life of the red blood cell or the in vivo glycation rates. Glucose, estimated average 12/12/2023 11:32:28 117 <126 (mg/dL) Final Performing Location [facility] [place] - [address] [place] [address]
--- OUTSIDE RECORDS SUMMARY | 2023-12-14 23:06 | External Medical Summary | Summary of Care ---
Author Name Unknown Organization [facility] Address [address] [place] [address] Phone [phone] Care Team Providers Care Author Name Role Phone Melva Noriega MD Primary Care Provid er Reason for Visit * Reason Comments Outpatient Testing Encounter Details Date Type Department Care Team (Late st Contact Info) Description 12/12/2023 11:20 AM EDT Laboratory Laboratory, [facility] [address] [place] [id number] [facility] [address] [place] [address] Need Other*[id number]; Prediabetes Allergies Active Allergy Reactions Criticality Noted Date Comments Pollen Other (Please comment) 09/23/2015 Congestion Ragweed Other (Please comment) 09/23/2015 Congestion documented as of this encounter (statuses as of 12/12/2023) Medications Medication Sig Dispensed Refills Start Date End Date Status Levocetirizine Dihydrochloride 5 MG Oral Tablet Take 1 Tablet by mouth every evening. Active Fluticasone Propionate 50 MCG/ACT Nasal Suspension Administer 1 [place] into nostril in the morning. Active Multivitamin Adult Oral Tablet Take by mouth. Active LORazepam 1 MG Oral Tablet (Ativan)Indications:Gr ief at loss of child Take 1 Tablet by mouth every 8 hours as needed for Anxiety or Agitation. 30 Tablet 11/14/2023 Active Amoxicillin 875 MG Oral TabletIndications:Grou p B streptococcal infection,Tonsil stone Take 1 Tablet by mouth in the morning and 1 Tablet before bedtime. 20 Tablet 12/04/2023 Active Escitalopram Oxalate 10 MG Oral Tablet (Lexapro)Indications:G rief at loss of child,Anxiety Take 1 Tablet by mouth at bedtime. 7 Tablet 12/04/2023 Active Escitalopram Oxalate 20 MG Oral Tablet (Lexapro) Take 1 Tablet by mouth at bedtime. 30 Tablet 5 12/04/2023 Active documented as of this encounter (statuses as [...] on file documented as of this encounter Plan of Treatment Upcoming Encounters Date Type Department Care Team (Late st Contact Info) Description 12/24/2023 7:30 AM EDT Imaging Radiology [facility] [address] [facility] [place] [address] 06/02/2024 7:15 AM EST Imaging Radiology [facility] [address] [facility] [place] [address] Pending Results Name Type Priority Associated Diagnoses Date /Time MYCODE SUBSEQUENT ADULT Lab Routine MyCode Research Other*[id number] 12/12/2023 11:32 AM EDT HEMOGLOBIN A1C Lab Routine Prediabetes 12/12/2023 11:32 AM EDT MYCODE SST1 Lab Routine MyCode [employer] Other*[id number] 12/12/2023 11:32 AM EDT MYCODE SST2 Lab Routine MyCode Research Other*[id number] 12/12/2023 11:32 AM EDT Scheduled Procedures Name Priority Associated Diagnoses Date/Ti [...] 11/22/2020, Additional history exists COVID-19 Vaccine ( season) 2023 03/17/2021, 07/06/2020 Influenza Vaccine (FLU shot) (#1) 2023 12/24/2021, 01/12/2021, 01/12/2020, Additional history exists Depression Screening 07/13/2024 07/14/2023 Colonoscopy 04/03/2025 04/03/2020, 04/03/2020 Colorectal Cancer Screening 04/03/2025 Pap Smear 05/17/2025 05/17/2022, 01/0 08/2015, 02/03/2012 (Done elsewhere), Additional history exists [...] as of this encounter Visit Diagnoses Diagnosis MyCode Research Other*[id number] Prediabetes Other abnormal glucose documented in this encounter Care Teams Author Relationship Specialty Start Date End Date Melva Noriega MD [address] [place] [facility] [place] [address] PCP - General Family Medicine 10/10/23 documented as of this encounter
[2023-12-14 23:44] LABS: Hematocrit (blood only) 37.7 % (37.0-47.0); Hemoglobin 12.6 g/dl (12.0-16.0); Mean Corpuscular Hgb Conc 33.4 g/dL (32.0-36.0); Mean Corpuscular Volume 86.7 fL (80.0-100.0); Mean Platelet Volume 9.5 fL (9.4-12.4); Platelet Count 261 K/uL (130-400); RDW Coefficient of Variation 13.8 % (11.5-14.5); Red Blood Count 4.35 M/uL (4.20-5.40); White Blood Count 13.17 K/ul (4.8-10.8)
[2023-12-14 23:59] LABS: Albumin Globulin Ratio 1.6 (0.9-2); Albumin Level 4.3 gm/dl (3.4-5.0); BUN Creatinine Ratio 14.5 (10-20); Bilirubin,Total 0.3 mg/dl (0.2-1.0); Calcium 9.6 mg/dl (8.6-10.3); Creatinine Clr Calc Pharmacy 108.1 ml/min; Est GFR (Non-African American) 91.5 ml/min; Globulin 2.7 gm/dl (2.5-4.0); Potassium 4.2 mmol/L (3.5-5.1)
[2023-12-15 00:16] LABS: INR 0.9 (0.9-1.1); Partial Thromboplastin Ratio 1.1; Partial Thromboplastin Time 29 Seconds (21-31); Prothrombin Time 10.3 Seconds (9.0-12.0)
[2023-12-15 00:18] LABS: Basophils # (auto) 0.05 K/uL (0.00-0.20); Basophils % (auto) 0.4 %; Eosinophils # (auto) 0.53 K/uL (0.00-0.50); Immature Granulocytes # (auto) 0.03 K/uL (0.01-0.20); Immature Granulocytes % (auto) 0.2 %; Lymphocytes # (auto) 5.03 K/uL (1.20-3.40); Lymphocytes % (auto) 38.2 %; Monocytes # (auto) 0.69 K/uL (0.11-0.59); Monocytes % (auto) 5.2 %; Neutrophils # (auto) 6.84 K/uL (1.40-6.50)
--- NOTE | 2023-12-15 02:07 | Emergency Department Note ---
History of Present Illness General Chief Complaint: Bradycardia Stated Complaint: REFF BY DR LOW HEART RATE Time Seen by Provider: 12/14/23 23:33 History of Present Illness Provider Complaint: + palpitations Onset (ago): week(s) (1) Duration: + Intermittent Arrhythmia history: no atrial fibrillation or no on anti-coagulants Associated symptoms: + chest pain, + shortness of breath and + anxiety; no syncope, no near-syncope, no nausea, no vomiting or no cough HPI narrative: Patient reports she was taken off Lexapro on and started on BuSpar. Patient has been under a lot of stress with the recent passing of her son. Home Medications Medication Instructions Recorded Confirmed Type buspirone 5 mg tablet 5 mg PO TID 12/15/23 12/15/23 History fluticasone propionate 50 1 spray intranasal DAILY 12/15/23 12/15/23 History mcg/actuation nasal spray,suspension lorazepam 1 mg tablet 1 mg PO TID PRN Anxiety 12/15/23 12/15/23 History Allergies Allergy/AdvReac Type Severity Reaction Status Date / Time avocado Allergy Intermediate Hives/Nause Unverified 12/08/23 13:48 a pollen extracts Allergy Unknown UNKNOWN Verified 12/08/23 13:48 ragweed pollen Allergy Unknown UNKNOWN Verified 12/08/23 13:48 No Known Drug Allergies Allergy Verified 03/19/19 10:23 Past Med/Surg History Problem List (Updated 12/15/23 @ 02:11 by Shaquille Sparrow MD) Chest pain (Acute) Palpitations (Acute) Anxiety (Acute) Palpitations (Acute) Chest pain (Acute) Encounter for gynecological examination without abnormal finding (Acute) Morbid obesity (Acute) Sleep apnea (Acute) Tobacco use disorder (Acute 12/17/12) Cough (Acute) Migraine (Chronic 12/17/12) Substernal precordial chest pain (Acute) Medical History History of placenta previa without hemorrhage History of menorrhagia History of migraine headaches History of cyst of breast with aspiration History of breast lump [place] Teeth Removal (12/17/12) Gastritis Surgical History History of tubal ligation History of tooth extraction History of endometrial ablation Family History Mother Arthritis Father Colorectal cancer Diabetes Hypertension Denies family history of Ovarian cancer Breast cancer Uterine cancer Social History Smoking Status: Current every day smoker Tobacco Type: Cigarettes Cigarettes Per Day: 1/2 ppd; Do You Dip or Chew Tobacco: No; Hx Alcohol Use: Yes (occasionally) Hx Substance Use: No Preferred Language: Malawian Feels Safe at Home: Yes Physical Exam 2 Vital Signs: Vital Signs - 24 hr 12/14/23 22:51 12/14/23 23:46 12/15/23 00:23 Temperature 36.3 C L Temperature Source Temporal Artery Sc an Pulse Rate 62 48 L 52 L Pulse Rhythm Regular Regular Pulse Strength Normal Respiratory Rate 20 16 Respiratory Effort / Characteristics Non-Labored Sponta neous Respiratory Depth Normal Blood Pressure 167/103 H Blood Pressure Mary n 124 Pulse Oximetry 95 98 Oxygen Delivery Me thod Room Air Room Air Sepsis Recent Feve r Within 48 Hours No Sepsis New/Unexpla ined Change in Men edna Status N/A Sepsis Action Take n by Nursing No Action Required Physical Exam: Physical Exam GENERAL: oriented to person, place, and time. appears well-developed and well- nourished. HENT: Exam performed. - Head: Normocephalic and atraumatic. EYES: Conjunctivae and EOM are normal. Right eye exhibits no discharge. Left eye exhibits no discharge. No scleral icterus. NECK: Normal range of motion. Neck supple. No JVD present. CV: Normal rate, regular rhythm, normal heart sounds and intact distal pulses. There is no peripheral edema. Palpable radial pulses bue. PULM/CHEST: Effort normal and breath sounds normal. No respiratory distress. No stridor. no wheezes. no rales. ABD: The abdomen is soft. There is no tenderness. NEURO: Motor and sensation grossly intact. SKIN: Skin is warm and dry. He is not diaphoretic. PSYCH: normal mood and affect. Behavior is normal. Judgment and thought content normal. Course Course 2333: The patient was evaluated in room B3. A complete history and physical exam was performed Cardiac monitoring: An order was placed for continuous cardiac monitoring. The monitor shows a rate of 50 with sinus rhythm interpreted by me 0020: Vital signs stable. Labs and imaging are unremarkable with exception of mild leukocytosis of 13. Thought to be reactive. Patient has no fevers. Patient will be admitted for cardiac workup. [facility] hospitalist team notified. Medical Decision Making Medical Records Attestation: I reviewed the patient's medical records. External medical records reviewed. Patient was seen in the emergency department 1 week ago for chest pain. At that time the patient had negative D-dimer, and 2 sets of negative troponins. As well as a negative chest x-ray. Laboratory Data Attestation: I reviewed the patient's lab results. 12/14/23 23:24 12/14/23 23:24 Lab Results 12/14/23 Range/Units 23:24 WBC 13.17 H (4.8-10.8) K/ul RBC 4.35 (4.20-5.40) M/uL Hgb 12.6 (12.0-16.0) g/dl Hct 37.7 (37.0-47.0) % MCV 86.7 (80.0-100.0) fL MCH 29.0 (25.0-34.0) pg MCHC 33.4 (32.0-36.0) g/dL RDW Std Deviation 44.0 (36.4-46.3) fL RDW Coeff of Ruma 13.8 (11.5-14.5) % Plt Count 261 (130-400) K/uL MPV 9.5 (9.4-12.4) fL Immature Gran % (Auto) 0.2 % Neut % (Auto) 52.0 % Lymph % (Auto) 38.2 % [place] % (Auto) 5.2 % Eos % (Auto) 4.0 % Baso % (Auto) 0.4 % Neut # (Auto) 6.84 H (1.40-6.50) K/uL Lymph # (Auto) 5.03 H (1.20-3.40) K/uL [place] # (Auto) 0.69 H (0.11-0.59) K/uL Eos # (Auto) 0.53 H (0.00-0.50) K/uL Baso # (Auto) 0.05 (0.00-0.20) K/uL Immature Gran # (Auto) 0.03 (0.01-0.20) K/uL PT 10.3 (9.0-12.0) Seconds INR 0.9 (0.9-1.1) APTT 29 (21-31) Seconds PTT Ratio 1.1 Sodium 138 (136-145) mmol/L Potassium 4.2 (3.5-5.1) mmol/L Chloride 104 (98-107) mmol/L Carbon Dioxide 28 (21-32) mmol/L Anion Gap 6 (3-11) BUN 11 (6-23) mg/dl Creatinine 0.76 (0.6-1.2) mg/dl Est Cr Clr Drug Dosing 108.1 ml/min Est GFR ( Amer) 106.0 ml/min Est GFR (Non-Af Amer) 91.5 ml/min BUN/Creatinine Ratio 14.5 (10-20) Glucose 89 (70-99(Fasting)) mg/dl Calcium 9.6 (8.6-10.3) mg/dl Total Bilirubin 0.3 (0.2-1.0) mg/dl AST 17 (13-39) U/L ALT 16 (7-52) U/L Alkaline Phosphatase 50 (34-104) U/L Troponin I High Sens 3.0 (0-14) pg/ml Total Protein 7.0 (6.0-8.3) gm/dl Albumin 4.3 (3.4-5.0) gm/dl Globulin 2.7 (2.5-4.0) gm/dl Albumin/Globulin Ratio 1.6 (0.9-2) Imaging Data Attestation: I personally reviewed and interpreted this imaging study as follows: My Impression: Chest x-ray negative. Airway clear. No pneumothorax. No consolidation. No cardiomegaly or cephalization.. No free air under the diaphragm. No fractures of the skeletal structures. ECG Data Attestation: I personally reviewed and interpreted this ECG as follows: Indication: palpitations Rate (beats per minute): 48 Rhythm: sinus bradycardia Findings: no ST depression, no ST elevation or no prolonged QT Additional Comments: QRS 78 MDM Narrative 2333: The patient was evaluated in room B3. A complete history and physical exam was performed Cardiac monitoring: An order was placed for continuous cardiac monitoring. The monitor shows a rate of 50 with sinus rhythm interpreted by me 0020: Vital signs stable. Labs and imaging are unremarkable with exception of mild leukocytosis of 13. Thought to be reactive. Patient has no fevers. Patient will be admitted for cardiac workup. [facility] hospitalist team notified. Impression & Plan Palpitations, Chest pain Discharge Plan Visit Data Chief Complaint: Bradycardia Stated Complaint: REFF BY , LOW HEART RATE ED Provider: Shaquille Sparrow Discharge Problem: Palpitations, Chest pain Patient Disposition: Admitted As Inpatient Forms Stand Alone Forms: [facility] Prescriptions Prescriptions: No Action buspirone 5 mg tablet 5 mg PO TID lorazepam 1 mg Tablet 1 mg PO TID PRN (Reason: Anxiety) fluticasone propionate [Flonase] 50 mcg/actuation [place],Suspension 1 spray INTRANASAL DAILY Rx Instructions: administer into each nostril Referrals Referrals: Chance Mcdaniel DO [Primary Care Provider] - Discharge Problem: Chest pain Qualifiers: Chest pain type: unspecified Qualified Code(s): R07.9 - Chest pain, unspecified
--- NOTE | 2023-12-15 02:20 | History & Physical Report ---
Date of Service December 15, 2023 Assessment & Plan (1) Bradycardia: Plan: 48-year-old female with past medical history significant for prediabetes, history of chronic tonsillitis, allergic rhinitis, murmur, obesity, panic disorder who recently lost her son a couple of months ago, was prescribed Lexapro but took it for 1 week and stopped it last Friday because she was not feeling well on Lexapro, was having weird feeling and thought her heart rate was dropping and and feeling shaky and jittery and today heart rates are still in the 40s usually her heart rates running high 50s so came to the ER. Last week she woke up once with chest discomfort thought to from heartburn and she is slept on the couch and it got resolved. Sometimes feels tightness in the chest and when she takes deep breath it goes away. Last Friday she had a panic attack and currently she is prescribed BuSpar. Has allergies and runny nose from it and cough. Denies any headache. She was feeling dizzy. No nausea. No abdominal pain. Recent antibiotic for left ear infection. Had diarrhea from antibiotic. Micturating okay. Ambulating okay. Resting comfortably currently. Bradycardia Questionable chest discomfort Troponin negative Will follow serial cardiac enzymes and echo Monitoring telemetry N.p.o. for now Consult cardiology in a.m. for further recommendations Depression/anxiety/panic disorder BuSpar and Ativan as needed Sleep apnea cpap DVT prophylaxis SCDs Disposition Observation med/telemetry Full code. History of Present Illness Chief Complaint: Bradycardia Primary Care Provider: Chance Mcdaniel DO 48-year-old female with past medical history significant for prediabetes, history of chronic tonsillitis, allergic rhinitis, murmur, obesity, panic disorder who recently lost her son a couple of months ago, was prescribed Lexapro but took it for 1 week and stopped it last Friday because she was not feeling well on Lexapro, was having weird feeling and thought her heart rate was dropping and and feeling shaky and jittery and today heart rates are still in the 40s usually her heart rates running high 50s so came to the ER. Last week she woke up once with chest discomfort thought to from heartburn and she is slept on the couch and it got resolved. Sometimes feels tightness in the chest and when she takes deep breath it goes away. Last Friday she had a panic attack and currently she is prescribed BuSpar. Has allergies and runny nose from it and cough. Denies any headache. She was feeling dizzy. No nausea. No abdominal pain. Recent antibiotic for left ear infection. Had diarrhea from antibiotic. Micturating okay. Ambulating okay. Resting comfortably currently. Past medical history. As mentioned above Past surgical history. Right breast biopsy. Colonoscopy. Dental surgery. EGD. Ligation of oviducts. Ablation of uterine leiomyoma Social history. . Smoked 0.8 pack a day for 20 years. Alcohol occasional. No drug use. Family history. Father had colon cancer. Diabetes. Heart attack. Hypertension. Back problems. Mother had vertigo. Maternal grandmother had colon cancer. Allergies Allergy/AdvReac Type Severity Reaction Status Date / Time avocado Allergy Intermediate Hives/Nause Unverified 12/08/23 13:48 a pollen extracts Allergy Unknown UNKNOWN Verified 12/08/23 13:48 ragweed pollen Allergy Unknown UNKNOWN Verified 12/08/23 13:48 No Known Drug Allergies Allergy Verified 03/19/19 10:23 Home Medications Medication Instructions Recorded Confirmed Type buspirone 5 mg tablet 5 mg PO TID 12/15/23 12/15/23 History fluticasone propionate 50 1 spray intranasal DAILY 12/15/23 12/15/23 History mcg/actuation nasal spray,suspension lorazepam 1 mg tablet 1 mg PO TID PRN Anxiety 12/15/23 12/15/23 History Past Med/Surg History Problem List (Updated 12/15/23 @ 02:26 by Amando Loera MD) Bradycardia Chest pain (Acute) Palpitations (Acute) Anxiety (Acute) Palpitations (Acute) Chest pain (Acute) Encounter for gynecological examination without abnormal finding (Acute) Morbid obesity (Acute) Sleep apnea (Acute) Tobacco use disorder (Acute 12/17/12) Cough (Acute) Migraine (Chronic 12/17/12) Substernal precordial chest pain (Acute) Medical History History of placenta previa without hemorrhage History of menorrhagia History of migraine headaches History of cyst of breast with aspiration History of breast lump [place] Teeth Removal (12/17/12) Gastritis Surgical History History of tubal ligation History of tooth extraction History of endometrial ablation Family History Mother Arthritis Father Colorectal cancer Diabetes Hypertension Denies family history of Ovarian cancer Breast cancer Uterine cancer Social History Smoking Status: Heavy tobacco smoker Tobacco Type: Cigarettes Cigarettes Per Day: 1/2 ppd; Do You Dip or Chew Tobacco: No; Hx Alcohol Use: No Hx Substance Use: No Preferred Language: Estonian Communication Ability: Effective [place] Required: No Beliefs That Will Affect Care: None Current Living Situation: Spouse Feels Safe at Home: Yes Safety Concerns: Feels Safe At This Time Assistive Devices: CPAP Review of Systems Review of Systems: All systems reviewed & are unremarkable except as noted in HPI & below Physical Exam Physical Exam: General- Not in distress. Head- atraumatic Eyes- PERRL. ENT- oropharynx clear Neck- supple, no JVD. Lungs- clear to auscultation no wheezing or crackles Heart- regular rhythm; no murmur, no gallop. Abdomen- normal bowel sounds, soft, nontender, no distension. Extremities- no pretibial edema, no erythema seen Neuro- alert, oriented ; PERRL, no facial palsy; no dysarthria; moves extremities Results & Data Results & Data Vital Signs (Past 12 Hours) Vital Signs Temp Pulse Resp BP Pulse Ox O2 Del Method 12/15/23 00:23 52 L 16 98 Room Air 12/14/23 23:46 48 L 12/14/23 22:51 36.3 C L 62 20 167/103 H 95 Room Air Diagnostic Findings Laboratory Results WBC 13.17 K/ul (4.8-10.8) H 12/14/23 23:24 RBC 4.35 M/uL (4.20-5.40) 12/14/23 23:24 Hgb 12.6 g/dl (12.0-16.0) 12/14/23 23:24 Hct 37.7 % (37.0-47.0) 12/14/23 23:24 MCV 86.7 fL (80.0-100.0) 12/14/23 23:24 MCH 29.0 pg (25.0-34.0) 12/14/23 23:24 MCHC 33.4 g/dL (32.0-36.0) 12/14/23 23: RDW Std Deviation 44.0 fL (36.4-46.3) 12/14/23: RDW Coeff of [place]uma 13.8 % (11.5-14.5) 12/14/23: Plt Count 261 K/uL (130-400) 12/14/23 23: MPV 9.5 fL (9.4-12.4) 12/14/23: Immature Gran % (Auto) 0.2 % 12/14/23 23: Neut % (Auto) 52.0 % 12/14/23: Lymph % (Auto) 38.2 % 12/14/23 23: [place] % (Auto) 5.2 % 12/14/23 23:24 Eos % (Auto) 4.0 % 12/14/23: Baso % (Auto) 0.4 % 12/14/23:24 Neut # (Auto) 6.84 K/uL (1.40-6.50) H 12/14/23 23:24 Lymph # (Auto) 5.03 K/uL (1.20-3.40) H 12/14/23 23:24 [place] # (Auto) 0.69 K/uL (0.11-0.59) H 12/14/23 23:24 Eos # (Auto) 0.53 K/uL (0.00-0.50) H 12/14/23 23:24 Baso # (Auto) 0.05 K/uL (0.00-0.20) 12/14/23 23:24 Immature Gran # (Auto) 0.03 K/uL (0.01-0.20) 12/14/23 23:24 PT 10.3 Seconds (9.0-12.0) 12/14/23 23:24 INR 0.9 (0.9-1.1) 12/14/23 23:24 APTT 29 Seconds (21-31) 12/14/23 23:24 PTT Ratio 1.1 12/14/23 23:24 Sodium 138 mmol/L (136-145) 12/14/23 23:24 Potassium 4.2 mmol/L (3.5-5.1) 12/14/23 23:24 Chloride 104 mmol/L (98-107) 12/14/23 23:24 Carbon Dioxide 28 mmol/L (21-32) 12/14/23 23:24 Anion Gap 6 (3-11) 12/14/23 23:24 BUN 11 mg/dl (6-23) 12/14/23 23:24 Creatinine 0.76 mg/dl (0.6-1.2) 12/14/23 23:24 Est Cr Clr Drug Dosing 108.1 ml/min 12/14/23 23:24 Est GFR ( Amer) 106.0 ml/min 12/14/23 23:24 Est GFR (Non-Af Amer) 91.5 ml/min 12/14/23 23:24 BUN/Creatinine Ratio 14.5 (10-20) 12/14/23 23:24 Glucose 89 mg/dl (70-99(Fasting)) 12/14/23 23:24 Calcium 9.6 mg/dl (8.6-10.3) 12/14/23 23:24 Total Bilirubin 0.3 mg/dl (0.2-1.0) 12/14/23 23:24 AST 17 U/L (13-39) 12/14/23 23:24 ALT 16 U/L (7-52) 12/14/23 23:24 Alkaline Phosphatase 50 U/L (34-104) 12/14/23 23:24 Troponin I High Sens 3.0 pg/ml (0-14) 12/14/23 23:24 Total Protein 7.0 gm/dl (6.0-8.3) 12/14/23 23:24 Albumin 4.3 gm/dl (3.4-5.0) 12/14/23 23:24 Globulin 2.7 gm/dl (2.5-4.0) 12/14/23 23:24 Albumin/Globulin Ratio 1.6 (0.9-2) 12/14/23 23:24 ECG Additional Comments: ECG. Sinus bradycardia 48. T wave inversions in anterior leads Code Status & VTE Plan VTE Prophylaxis Plan VTE Prophylaxis will be ordered: Yes
[2023-12-15] MEDS ORDERED: ACETAMINOPHEN 325 MG TAB PO PRN (04:00)
[2023-12-15] MEDS ORDERED: LORazepam 1 MG TAB PO PRN (04:00)
[2023-12-15] MEDS ORDERED: POLYETHYLENE (MIRALAX) 17 GM PACK PO PRN (04:00)
[2023-12-15] MEDS ORDERED: NITROGLYCERIN SL 0.4 MG/TAB TAB SL PRN (04:00)
--- NOTE | 2023-12-15 06:41 | XRay Report ---
XR chest 1V not portable CLINICAL HISTORY: Chest pain, nonspecific COMPARISON STUDY: Chest CT December 14, 2015. Chest radiograph December 08, 2023. FINDINGS: Lung volumes are normal. Lungs are clear. There is no pneumothorax or pleural effusion. Car diac size is stable. Mediastinal contours are normal. There is no evidence for pulmonary edema. IMPRESSION: No acute cardiopulmonary findings. ACT 112: Negative or not required by law. Electronically signed by: Mc Allen M.D. 12/15/2023 6:40 AM
[2023-12-15] MEDS: busPIRone 5 MG TAB PO SCH (07:47)
[2023-12-15] MEDS: FLUTICASONE PROPIONATE NA SPR 16 GM BTL SCH (07:47)
[2023-12-15] MEDS: PANTOprazole 40 MG TAB PO SCH (07:47)
[2023-12-15 07:48] LABS: Estimated Average Glucose 120 mg/dl; Hemoglobin A1C 5.8 % (4.5-5.6)
[2023-12-15 08:55] LABS: Hematocrit (blood only) 37.7 % (37.0-47.0); Hemoglobin 12.6 g/dl (12.0-16.0); Mean Corpuscular Hemoglobin 28.5 pg (25.0-34.0); Mean Corpuscular Hgb Conc 33.4 g/dL (32.0-36.0); Mean Corpuscular Volume 85.3 fL (80.0-100.0); Mean Platelet Volume 9.3 fL (9.4-12.4); Platelet Count 263 K/uL (130-400); RDW Coefficient of Variation 13.7 % (11.5-14.5); Red Blood Count 4.42 M/uL (4.20-5.40)
[2023-12-15 09:14] LABS: Calcium 9.3 mg/dl (8.6-10.3); Magnesium 2.1 mg/dl (1.7-2.4); Potassium 3.9 mmol/L (3.5-5.1)
[2023-12-15 09:20] LABS: BUN Creatinine Ratio 13.8 (10-20); Creatinine Clr Calc Pharmacy 127.7 ml/min; Est GFR (Non-African American) 103.5 ml/min; Phosphorus 3.9 mg/dl (2.5-4.9)
--- NOTE | 2023-12-15 10:14 | Communication Note ---
Date of Service: December 15, 2023 Patient seen and examined Reported URI 11 days ago and completed antibiotics yesterday Reported she lost one of her sons about 2 months ago and her anxiety has been getting worse since. She was started on lexapro on 12/05/23. She stated she started having episodes of jitteriness, feeling her heart beat, some twinge in the chest and also reduced HR. She stated her baseline HR is usually 55-60s on her watch/BP machine but now dropping to 40s. Her Dr asked her to stop the lexapro which she stopped on 12/11/23 and started Buspar on 12/12/23. She reports episodes continues hence her presentation to the hospital Exam notable for obesity, sinus bradycardia. Patient cried when talking about son that . Labs unremarkable. Trop negative EKG showed sinus bradycardia Will appreciate Cardiology eval Get Echo Possibility of med mediated based on history. Consult psych to assist with management as well incase meds may need to be changed as well. Counseled patient regarding smoking cessation. Smokes 10 cig per day Continue CPAP HS for [place] Other plans as detailed in H/P this AM
--- NOTE | 2023-12-15 13:57 | Psychiatric Consultation ---
Date of Consultation December 15, 2023 Impression / Recommendations Impression Alisha Norris is a 48 yo woman with a history of prediabetes, chronic tonsillitis, allergic rhinitis, murmur, panic disorder admitted medically for bradycardia following recent trial of escitalopram and buspirone. Psychiatry consulted for medication recommendations for bereavement and anxiety. Diagnostically consistent with bereavement and likely exacerbation of panic disorder and adjustment disorder with anxiety and panic attacks due to the of her son. All serotonergic medications have the potential to cause bradycardia though this a fairly rare side effect. However, given her poor tolerance of SSRI trial and possible ongoing bradycardia from low dose Buspar would encourage trial of an SNRI as the noradrenergic effects can sometimes lead to increased HR and BP or at least may help to neutralize the possible bradycardia effects of the serotonergic activity. Given her acute grief and distress, and no concerns for substance use, agree with use of benzodiazepines as needed while the SNRI is titrated and takes effect. Additionally consider use of Vistaril as this may help manage some of her panic symptoms without worsening HR. Overall, I spent a total of 45 minutes with this case including review of chart records, review of labwork, review of EKG QTc, direct evaluation of the patient at bedside, counseling the patient, discussion of the patient with the Nurse and with the hospitalist provider, discussion with the psychiatric liason during clinical rounds and documentation in the electronic health record. (1) Anxiety: (2) Bereavement: (3) Adjustment disorder with anxious mood: (4) Panic attacks: (5) Bradycardia: Plan -Consider discontinuation of Buspar due to concern that serotonergic effects may be contributing to bradycardia -Consider initiation of Effexor XR 75mg daily -Agree with option of ativan 1mg TID prn for anxiety, if this causes excessive sedation or dizziness consider lower dose such as 0.25mg TID prn or use of scheduled low dose Klonopin 0.125mg - 0.25mg daily for help reducing daytime anxiety while waiting for the Effexor XR to take effect over the next 4-6 weeks -Consider use of Vistaril 10mg TID prn for anxiety and 25-50mg HS prn for insomnia (as long as HR doesn't drop with this) -Encourage outpatient referral for [facility] psychiatry Psych History Identifying Data Alisha Norris is a 48 yo woman with a history of prediabetes, chronic tonsillitis, allergic rhinitis, murmur, panic disorder admitted medically for bradycardia following recent trial of escitalopram and buspirone. Psychiatry consulted for medication recommendations for bereavement and anxiety. Chief Complaint "It's been constant". History of Present Illness Alisha presents with worsening anxiety and grief symptoms following the recent los s of her son and significantly exacerbated last week after receiving his autopsy report. She reports a longstanding history of occasional anxiety, mostly at nighttime, but over the last few weeks this has escalated to persistent anxiety and panic symptoms throughout the day described as "an all-day rupem-kn-goqlqe feeling". She describes it as a "butterfly feeling in my stomach" and a "cqhce-iu-srqzej sensation". She feels shaky and jittery. She notes difficulty concentrating and remembering things at work so she has to write everything down now. She also reports some somatic symptoms including heartburn which she thinks may be stress-related. She describes feeling shaky, jittery and her low heart rate seems to exacerbate her anxiety symptoms. She endorses struggling with concentration and organization at work which she attributes to her grief and intense work stress. Due to her intense symptoms her PCP started her on escitalopram but this was discontinued by her PCP after a few days due to symptoms of uneasiness, general sense of malaise and low heart rate. She was then started on Buspar which she is finding somewhat helpful but she worries this is continuing to negatively impact her heart rate. She has tried Ativan in recent days for sleep but is unable to take it during the day due to work obligations and wondered if this caused reflux-type symptoms. She notes a longstanding history of low resting heart rate, ranging from 50-60 bpm. She has an Xanax prescription from a recent ED visit for panic attack that she has not tried yet. Her only other psychiatric medication history was taking Celexa during her divorce in the and a brief trial of Zoloft years ago. She has been engaged in therapy at [facility] which she reports has been helpful, especially after receiving her son's autopsy report on Friday last week. She denies any suicidal ideation and cites her and sons as significant deterrents and protective factors. Allergies Allergy/AdvReac Type Severity Reaction Status Date / Time avocado Allergy Intermediate Hives/Nause Unverified 12/08/23 13:48 a pollen extracts Allergy Unknown UNKNOWN Verified 12/08/23 13:48 ragweed pollen Allergy Unknown UNKNOWN Verified 12/08/23 13:48 No Known Drug Allergies Allergy Verified 03/19/19 10:23 Home Medications Medication Instructions Recorded Confirmed Type buspirone 5 mg tablet 5 mg PO TID 12/15/23 12/15/23 History fluticasone propionate 50 1 spray intranasal DAILY 12/15/23 12/15/23 History mcg/actuation nasal spray,suspension lorazepam 1 mg tablet 1 mg PO TID PRN Anxiety 12/15/23 12/15/23 History Patient History Medical History History of placenta previa without hemorrhage History of menorrhagia History of migraine headaches History of cyst of breast with aspiration History of breast lump Hunt Teeth Removal (12/17/12) Gastritis Surgical History History of tubal ligation History of tooth extraction History of endometrial ablation Family History Mother Arthritis Father Colorectal cancer Diabetes Hypertension Denies family history of Ovarian cancer Breast cancer Uterine cancer Social History Smoking Status: Heavy tobacco smoker Tobacco Type: Cigarettes Cigarettes Per Day: 1/2 ppd; Do You Dip or Chew Tobacco: No; Hx Alcohol Use: No Hx Substance Use: No Preferred Language: Kazakh Communication Ability: Effective Area Representative Required: No Beliefs That Will Affect Care: None Current Living Situation: Spouse Feels Safe at Home: Yes Safety Concerns: Feels Safe At This Time Assistive Devices: CPAP Physical Exam Psychiatric: Orientation: alert and oriented x 3 Apperance: appropriately dressed and appropriately groomed Eye Contact: good eye contact Motor Behavior: no abnormal motor movements Speech: normal rate/rhythm/volume of speech Affect: + anxious affect and + tearful affect Mood: + anxious mood Thought Process: goal directed thought process Thought Content: reality based without delusions Suicidal Thoughts: denies suicidal thoughts, denies suicidal plan and denies suicidal intent Homicidal Thoughts: denies homicidal thoughts Hallucinations: no auditory hallucinations and no visual hallucinations Cognition: recent memory grossly intact, remote memory grossly intact, attention grossly intact and language grossly intact Estimated Intelligence: consistent with education level Insight: good insight Judgment: good judgement Vital Signs (Past 24 Hours): Last Vital Signs Temp 36.7 C 12/15/23 11:48 Pulse 48 L 12/15/23 11:48 Resp 16 12/15/23 11:48 BP 119/78 12/15/23 11:48 Pulse Ox 95 12/15/23 11:48 O2 Del Method Room Air 12/15/23 11:48 FiO2 21 12/15/23 04:32 Results & Data (PSY) Medications Administered Buspirone HCl (Buspirone 5 Mg Tab) 5 mg PO TID [facility] Stop: 01/14/24 08:59 Last Admin: 12/15/23 07:47 Dose: 5 mg Documented By: ANA Fluticasone Propionate (Fluticasone Propionate Na Spr 16 Gm Btl) 1 sprays NA DAILY CHANI Stop: 01/14/24 08:59 Last Admin: 12/15/23 07:47 Dose: 1 sprays Documented By: ANA Pantoprazole Sodium (Pantoprazole 40 Mg Tab) 40 mg PO DAILY CHANI Stop: 01/14/24 08:59 Last Admin: 12/15/23 07:47 Dose: 40 mg Documented By: ANA Coding Level of Care Code 79204 IN/OBS CONSULT LVL 3,45M Diagnoses Anxiety F41.9 Bereavement Z63.4 Adjustment disorder with anxious mood F43.22 Panic attacks F41.0 Bradycardia R00.1
[2023-12-15] MEDS: VENLAFAXINE HCL XR 75 MG CAPXR PO SCH (14:57)
[2023-12-15] MEDS: hydrOXYzine HCl 10 MG TAB PO PRN (19:03)
--- NOTE | 2023-12-16 06:40 | Electrocardiogram Report ---
Test Reason : Blood Pressure : */* mmHG Vent. Rate : 48 BPM Atrial Rate : 48 BPM P-R Int : 180 ms QRS Dur : 78 ms QT Int : 438 ms P-R-T Axes : 50 54 50 degrees QTcB Int : 391 ms Sinus bradycardia Otherwise normal ECG When compared with ECG of 08-Dec-2023 11:51, T wave inversion now evident in Anterior leads Confirmed by Franklyn Stewart ([id number]) on 12/16/2023 6:40:10 AM Referred By: Chance Mcdaniel Confirmed By: Franklyn Stewart
--- NOTE | 2023-12-16 06:54 | Electrocardiogram Report ---
Test Reason : Blood Pressure : */* mmHG Vent. Rate : 45 BPM Atrial Rate : 45 BPM P-R Int : 182 ms QRS Dur : 92 ms QT Int : 480 ms P-R-T Axes : 65 73 68 degrees QTcB Int : 415 ms Sinus bradycardia Otherwise normal ECG When compared with ECG of 14-Dec-2023 23:19, (unconfirmed) T wave inversion no longer evident in Anterior leads Confirmed by Franklyn Stewart ([id number]) on 12/16/2023 6:53:44 AM Referred By: Chance Mcdaniel Confirmed By: Franklyn Stewart
[2023-12-16 07:04] LABS: Hematocrit (blood only) 39.8 % (37.0-47.0); Mean Corpuscular Hemoglobin 28.4 pg (25.0-34.0); Mean Corpuscular Hgb Conc 32.7 g/dL (32.0-36.0); Mean Corpuscular Volume 86.9 fL (80.0-100.0); Mean Platelet Volume 9.1 fL (9.4-12.4); Platelet Count 273 K/uL (130-400); RDW Coefficient of Variation 13.8 % (11.5-14.5); RDW Standard Deviation 43.8 fL (36.4-46.3); Red Blood Count 4.58 M/uL (4.20-5.40); White Blood Count 9.78 K/ul (4.8-10.8)
[2023-12-16 07:29] LABS: BUN Creatinine Ratio 18.3 (10-20); Calcium 9.1 mg/dl (8.6-10.3); Creatinine Clr Calc Pharmacy 117.1 ml/min; Est GFR (African American) 115.1 ml/min; Est GFR (Non-African American) 99.3 ml/min; Phosphorus 3.7 mg/dl (2.5-4.9); Potassium 3.9 mmol/L (3.5-5.1)
--- NOTE | 2023-12-16 09:14 | Electrocardiogram Report ---
Test Reason : Blood Pressure : */* mmHG Vent. Rate : 45 BPM Atrial Rate : 45 BPM P-R Int : 174 ms QRS Dur : 80 ms QT Int : 476 ms P-R-T Axes : 66 78 72 degrees QTcB Int : 411 ms Sinus bradycardia Otherwise normal ECG When compared with ECG of 15-Dec-2023 06:28, No significant change was found Confirmed by True Arriola ([id number]) on 12/16/2023 9:14:08 AM Referred By: Chance Mcdaniel Confirmed By: True Arriola
[2023-12-16 10:37] VITALS: BP 121/77; PULSE 52; RESP 18; TEMP 98.4; O2SAT 94
--- NOTE | 2023-12-16 13:05 | Discharge Summary ---
Date of Service December 16, 2023 Admission HPI Per Admitting Provider 48-year-old female with past medical history significant for prediabetes, history of chronic tonsillitis, allergic rhinitis, murmur, obesity, panic disorder who recently lost her son a couple of months ago, was prescribed Lexapro but took it for 1 week and stopped it last Friday because she was not feeling well on Lexapro, was having weird feeling and thought her heart rate was dropping and and feeling shaky and jittery and today heart rates are still in the 40s usually her heart rates running high 50s so came to the ER. Last week she woke up once with chest discomfort thought to from heartburn and she is slept on the couch and it got resolved. Sometimes feels tightness in the chest and when she takes deep breath it goes away. Last Friday she had a panic attack and currently she is prescribed BuSpar. Has allergies and runny nose from it and cough. Denies any headache. She was feeling dizzy. No nausea. No abdominal pain. Recent antibiotic for left ear infection. Had diarrhea from antibiotic. Micturating okay. Ambulating okay. Resting comfortably currently. Past medical history. As mentioned above Past surgical history. Right breast biopsy. Colonoscopy. Dental surgery. EGD. Ligation of oviducts. Ablation of uterine leiomyoma Social history. . Smoked 0.8 pack a day for 20 years. Alcohol occasional. No drug use. Family history. Father had colon cancer. Diabetes. Heart attack. Hypertension. Back problems. Mother had vertigo. Maternal grandmother had colon cancer. Admission Exam Per Admitting Provider General- Not in distress. Head- atraumatic Eyes- PERRL. ENT- oropharynx clear Neck- supple, no JVD. Lungs- clear to auscultation no wheezing or crackles Heart- regular rhythm; no murmur, no gallop. Abdomen- normal bowel sounds, soft, nontender, no distension. Extremities- no pretibial edema, no erythema seen Neuro- alert, oriented ; PERRL, no facial palsy; no dysarthria; moves extremities Principal Diagnosis Sinus bradycardia Anxiety Adjustment disorder Bereavement Discharge Exam Constitutional + well hydrated and + obese; no acute distress Eyes PERRL, conjunctivae normal, anicteric sclerae ENMT external ear and nose normal, oropharynx normal Respiratory normal respiratory effort, lungs clear to auscultation Cardiovascular Rate/Rhythm: regular rhythm and + bradycardic Gastrointestinal (Abdomen) normal bowel sounds, soft, nontender, no hepatosplenomegaly Musculoskeletal no cyanosis or clubbing, extremities motor strength 5/5 Neurologic PERRL, EOMI, accommodation nl, no face palsy, no dysarthria Psychiatric A+Ox3, euthymic affect Discharge Data Allergies Allergy/AdvReac Type Severity Reaction Status Date / Time avocado Allergy Intermediate Hives/Nause Unverified 12/08/23 13:48 a pollen extracts Allergy Unknown UNKNOWN Verified 12/08/23 13:48 ragweed pollen Allergy Unknown UNKNOWN Verified 12/08/23 13:48 No Known Drug Allergies Allergy Verified 03/19/19 10:23 Consultations 12/15/23 00:18 ED Decision to Admit Stat 12/15/23 10:41 Consult Psychiatry Routine Hospital Course (1) Bradycardia: (2) Adjustment disorder with anxious mood: (3) Bereavement: (4) Anxiety: Plan Sinus Bradycardia Patient reports her baseline HR is 55-60s but dropped lower since starting lexapro Troponin negative EKG showed sinus bradycardia TTE was unremarkable Bradycardia likely related to medication Lexapro had been stopped and changed to buspirone few days to presentation Psychiatry evaluated and recommended stopping buspirone and start effexor 75mg daily and vistaril 10mg TID PRN anxiety Patient reports she follows a counsellor Psychiatry also recommends follow up with a Psychiatrist outpatient. I reviewed with [employer] Dr Velázquez. No further cardiac eval at this time Total Time Total Time Spent Total Time Spent (In Minutes): 35 Total Time Includes: Examination of the Patient, Discharge Planning, Medication Reconciliation and Communication With Other Providers Discharge Plan Discharge Items Patient Disposition: Home - Self-Care Reason For Visit: BRADYCARDIA Discharge Diagnosis: Sinus bradycardia Anxiety Adjustment disorder Bereavement Activity: Resume your previous activity Non-emergency contact: Primary Care Provider and Psychiatrist Call non-emergency contact if: you have any medication questions and your symptoms worsen Follow-up/Referrals: Chance Mcdaniel DO [Primary Care Provider] - Melva Noriega MD [Outside Practitioners] - 12/19/23 11:00 am Diet: Heart Healthy Addtl Attending Provider Instructions: Mrs Lopeztinger You came to the hospital complaining of low heart rate and other symptoms of anxiety. You were evaluated for the above diagnoses. You were seen by a Psychiatrist and some changes were made in your medications. Please stop taking buspirone. You were started on Effexor You were also started on vistaril as needed for anxiety. Please ensure follow up with your Primary Doctor. Please ensure you establish with a Psychiatrist outpatient. It was a pleasure taking care of you Pending Studies at Discharge: No Stand-Alone Forms: My [facility], Smoking Cessation Medications and DC Order Prescriptions: New venlafaxine 75 mg Capsule,Extended Release 24hr 75 mg PO DAILY 30 Days Qty: 30 0RF hydroxyzine HCl 10 mg Tablet 10 mg PO TID PRN (Reason: anxiety) Qty: 90 0RF Continued lorazepam 1 mg Tablet 1 mg PO TID PRN (Reason: Anxiety) fluticasone propionate 50 mcg/actuation [place],Suspension 1 spray INTRANASAL DAILY Rx Instructions: administer into each nostril Discontinued buspirone 5 mg tablet 5 mg PO TID Discharge Orders: Discharge Order (Routine); Ordered 12/16/23 Ordered By: Nuria Mackenzie Admission Data Admit Date/Time: 12/15/23 02:09 Attending Provider: Nuria Mackenzie I. Admit Provider: Amando Loera Primary Care Provider: Chance Mcdaniel Other Providers: Amando Loera; Linda Herrera; Tommy Martínez; Uri Chappell Jr; Trudy Núñez; Juliette Britton; Gabriel Mcnally Other Interventions: Discharge Summary Assessment (RN) Last Done: 12/16/23 13:26
--- OUTSIDE RECORDS SUMMARY | 2023-12-16 22:44 | External Medical Summary ---
Author Name Unknown Address Unknown Organization [id number]:[facility] [place] [facility] [place] [address] [place] [id number] Laboratory Report Ordering Provider Test Date Status MARLENE ALLISON 12/12/2023 11:32:28 Final Observation Date Value Abnormality Reference (Units ) Status MYCODE SPECIMEN-SST 12/12/2023 11:32:28 Freezing of extracted DNA, whole blood and/or serum. Final Performing Location [facility] [place] [facility] [place] [address] [place] [id number]
--- OUTSIDE RECORDS SUMMARY | 2023-12-16 22:44 | External Medical Summary ---
Author Name Unknown Address Unknown Organization [id number]:LAB[facility]ATORY [facility] [place] - [address] [place] [id number] Laboratory Report Ordering Provider Test Date Status MARLENE ALLISON 12/12/2023 11:32:28 Final Observation Date Value Abnormality Reference (Units ) Status MYCODE SPECIMEN-SST 12/12/2023 11:32:28 Freezing of extracted DNA, whole blood and/or serum. Final Performing Location LAB[facility]ATORY [facility] [place] - [address] [place] [id number]
== END 2023-12-16 14:05 | disposition home or self-care (01) ==
LOC: ED 22:48 → 2N 22:48